=== PATIENT | male | born 1995 | race Caucasian/White ===

== ENCOUNTER 2022-07-10 06:44 | Inpatient (IN) | payer OTHER ==
[~2022-07-10] VITALS: Ht 165.1 cm; Wt 62.7 kg
[2022-07-10 08:01] LABS: HEMATOCRIT 45.3 % (42.0-52.0); HEMOGLOBIN 14.8 g/dl (13.5-17.5); MEAN CORPUSCULAR HEMOGLOBIN 29.4 pg (27.0-33.0); MEAN CORPUSCULAR HGB CONC 32.7 g/dl (32.0-36.5); MEAN CORPUSCULAR VOLUME 89.9 fl (80.0-96.0); PLATELET COUNT, AUTOMATED 314 10^3/uL (150-450); RED BLOOD COUNT 5.04 10^6/uL (4.30-6.10); WHITE BLOOD COUNT 9.7 10^3/uL (4.0-10.0)
[2022-07-10] MEDS ORDERED: NICOTINE 21MG/24HR 1 EA TRANSDERMAL TD ONE (08:25)
[2022-07-10 08:39] LABS: RSV AMPLIFICATION NEGATIVE (NEGATIVE)
[2022-07-10 08:46] LABS: ACETAMINOPHEN LEVEL < 2.0 UG/ML (10.0-30.0); ALBUMIN 4.6 GM/DL (3.2-5.2); ALT/SGPT 22 U/L (12-78); BILIRUBIN,DIRECT 0.2 MG/DL (0.0-0.2); BILIRUBIN,TOTAL 0.7 MG/DL (0.2-1.0); BLOOD UREA NITROGEN 21 MG/DL (7-18); CALCIUM LEVEL 9.4 MG/DL (8.5-10.1); CARBON DIOXIDE LEVEL 27 MEQ/L (21-32); CHLORIDE LEVEL 104 MEQ/L (98-107); CREATININE FOR GFR 0.96 MG/DL (0.70-1.30); ETHYL ALCOHOL (ETHANOL) < 0.003 % (0.000-0.010); GLOMERULAR FILTRATION RATE > 60.0 (>60); GLUCOSE, FASTING 96 MG/DL (70-100); POTASSIUM SERUM 3.6 MEQ/L (3.5-5.1); SALICYLATE LEVEL 2.4 MG/DL (5.0-30.0); SODIUM LEVEL 136 MEQ/L (136-145); TOTAL PROTEIN 7.7 GM/DL (6.4-8.2)
[2022-07-10 10:56] LABS: AMPHETAMINES LEVEL URINE NEGATIVE (NEGATIVE); BARBITURATES URINE NEGATIVE (NEGATIVE); BENZODIAZEPINES URINE NEGATIVE (NEGATIVE); CANNABINOIDS URINE NEGATIVE (NEGATIVE); COCAINE METABOLITE URINE NEGATIVE (NEGATIVE); METHADONE URINE NEGATIVE (NEGATIVE); OPIATES URINE NEGATIVE (NEGATIVE); PHENCYCLIDINE URINE NEGATIVE (NEGATIVE)
[2022-07-10] MEDS ORDERED: HYDR1SYP3 PO (11:28)
[2022-07-10] MEDS ORDERED: LEXA1TAB2 PO (11:29)
[2022-07-10] MEDS ORDERED: HYDR50TA70 PO (18:56)
[2022-07-10] MEDS ORDERED: HOME MED LIST COMPLETE! XX SCH (19:00)
[2022-07-10] MEDS: hydrOXYzine 50 MG TAB PO PRN (20:55)
[2022-07-11] MEDS ORDERED: ESCITALOPRAM OXALATE 10 MG TAB (LEXAPRO) PO SCH (09:00)
[2022-07-11] MEDS ORDERED: NICOTINE 21MG/24HR 1 EA TRANSDERMAL TD ONE (10:50)
[2022-07-11] MEDS ORDERED: IBUPROFEN 400MG TAB PO PRN (15:25)
[2022-07-11] MEDS ORDERED: MAALOX 30 ML SUSP *UDC PO PRN (15:25)
[2022-07-11] MEDS ORDERED: traZODone 50 MG TAB PO PRN (15:25)
[2022-07-11] MEDS ORDERED: MOM 30ML SUSPENSION UDC PO PRN (15:25)
[2022-07-11] MEDS: hydrOXYzine 50 MG TAB PO PRN (23:54)
[2022-07-12] MEDS ORDERED: NICOTINE POLACRILEX 2 MG GUM PO PRN (10:30)
[2022-07-12] MEDS: ESCITALOPRAM OXALATE 10 MG TAB (LEXAPRO) PO SCH (10:53)
[2022-07-12] MEDS: NICOTINE 21MG/24HR 1 EA TRANSDERMAL TD SCH (10:53)
[2022-07-12 18:06] VITALS: BP 144/72
[2022-07-12] MEDS: hydrOXYzine 50 MG TAB PO SCH (21:31)
[2022-07-13 06:56] VITALS: BP 103/51
[2022-07-13] MEDS: NICOTINE 21MG/24HR 1 EA TRANSDERMAL TD SCH (09:31)
[2022-07-13] MEDS: ESCITALOPRAM OXALATE 10 MG TAB (LEXAPRO) PO SCH (09:31)
[2022-07-13 18:32] VITALS: BP 127/69
[2022-07-13] MEDS: hydrOXYzine 50 MG TAB PO SCH (20:19)
[2022-07-14 06:28] VITALS: BP 131/83
[2022-07-14] MEDS: ESCITALOPRAM OXALATE 10 MG TAB (LEXAPRO) PO SCH (09:09)
[2022-07-14] MEDS: NICOTINE 21MG/24HR 1 EA TRANSDERMAL TD SCH (09:15)
[2022-07-14] MEDS: busPIRone 5 MG TAB PO SCH ×2 (15:12→20:49)
[2022-07-14 16:31] VITALS: BP 130/80
[2022-07-14] MEDS: hydrOXYzine 50 MG TAB PO SCH (20:50)
[2022-07-15 06:41] VITALS: BP 129/71
[2022-07-15] MEDS: busPIRone 5 MG TAB PO SCH ×3 (08:43→21:10)
[2022-07-15] MEDS: ESCITALOPRAM OXALATE 10 MG TAB (LEXAPRO) PO SCH (08:43)
[2022-07-15] MEDS: NICOTINE 21MG/24HR 1 EA TRANSDERMAL TD SCH (08:48)
[2022-07-15 16:25] VITALS: BP 111/60
[2022-07-15 16:31] VITALS: BP 111/60
[2022-07-15] MEDS: hydrOXYzine 50 MG TAB PO SCH (21:10)
[2022-07-16 06:28] VITALS: BP 108/63
[2022-07-16] MEDS ORDERED: INFLUENZA QUADRIVALENT PF VACCINE 0.5ML SYRINGE IM.IMMUN ONE (09:20)
[2022-07-16] MEDS: NICOTINE 21MG/24HR 1 EA TRANSDERMAL TD SCH (09:27)
[2022-07-16] MEDS: busPIRone 5 MG TAB PO SCH (09:27)
[2022-07-16] MEDS: ESCITALOPRAM OXALATE 10 MG TAB (LEXAPRO) PO SCH (09:27)
[2022-07-16] MEDS ORDERED: TRAZ-252 PO (09:41)
[2022-07-16] MEDS ORDERED: BUSP5TA PO (09:41)
[2022-07-16] MEDS ORDERED: NICO2GUM PO (09:41)
[2022-07-16] MEDS ORDERED: LEXA1TAB PO (09:41)
[2022-07-16] MEDS ORDERED: NICO21PAT TD (09:41)
== END 2022-07-16 10:45 | disposition home or self-care (01) | DRG 882 ==
LOC: M ED 06:44 → M ED INP 07-11 15:27 → M PSY 07-11 18:32
PROVIDERS: ADMIT Psychiatry & Neurology Psychiatry; ATTEND Student in an Organized Health Care Education/Training Program
DX: F43.23 Adjustment disorder with mixed anxiety and depressed mood (principal); F41.1 Generalized anxiety disorder; F43.10 Post-traumatic stress disorder, unspecified; F60.89 Other specific personality disorders; F17.290 Nicotine dependence, other tobacco product, uncomplicated; Z79.899 Other long term (current) drug therapy; Z91.52 Personal history of nonsuicidal self-harm; F17.210 Nicotine dependence, cigarettes, uncomplicated; S51.812A Laceration without foreign body of left forearm, initial encounter; X78.9XXA Intentional self-harm by unspecified sharp object, initial encounter; Y92.9 Unspecified place or not applicable; Y93.9 Activity, unspecified; Y99.8 Other external cause status; Z63.5 Disruption of family by separation and divorce; Z81.8 Family history of other mental and behavioral disorders; Z20.822 Contact with and (suspected) exposure to COVID-19

== ENCOUNTER 2022-08-25 19:27 | Emergency (ER) | payer OTHER ==
[~2022-08-25] VITALS: Ht 162.6 cm; Wt 65.7 kg
[~2022-08-25 19:27] MED LIST: BUSP5TA PO; HYDR1SYP3 PO; HYDR50TA70 PO; LEXA1TAB PO; LEXA1TAB2 PO; NICO21PAT TD; NICO2GUM PO; TRAZ-252 PO
[2022-08-25 19:29] VITALS: BP 136/81
[2022-08-25 20:55] LABS: HEMATOCRIT 42.8 % (42.0-52.0); HEMOGLOBIN 14.3 g/dl (13.5-17.5); MEAN CORPUSCULAR HEMOGLOBIN 29.2 pg (27.0-33.0); MEAN CORPUSCULAR HGB CONC 33.4 g/dl (32.0-36.5); MEAN CORPUSCULAR VOLUME 87.3 fl (80.0-96.0); PLATELET COUNT, AUTOMATED 331 10^3/uL (150-450); WHITE BLOOD COUNT 6.2 10^3/uL (4.0-10.0)
[2022-08-25 21:22] LABS: RSV AMPLIFICATION NEGATIVE (NEGATIVE)
[2022-08-25 21:30] LABS: ACETAMINOPHEN LEVEL < 2.0 UG/ML (10.0-30.0); ALT/SGPT 27 U/L (12-78); BILIRUBIN,DIRECT 0.1 MG/DL (0.0-0.2); BILIRUBIN,TOTAL 0.5 MG/DL (0.2-1.0); BLOOD UREA NITROGEN 11 MG/DL (7-18); CARBON DIOXIDE LEVEL 28 MEQ/L (21-32); CHLORIDE LEVEL 107 MEQ/L (98-107); CREATININE FOR GFR 0.77 MG/DL (0.70-1.30); ETHYL ALCOHOL (ETHANOL) < 0.003 % (0.000-0.010); GLOMERULAR FILTRATION RATE > 60.0 (>60); GLUCOSE, FASTING 90 MG/DL (70-100); SALICYLATE LEVEL 2.7 MG/DL (5.0-30.0); SODIUM LEVEL 140 MEQ/L (136-145); TOTAL PROTEIN 7.1 GM/DL (6.4-8.2)
== END 2022-08-25 22:17 | disposition home or self-care (01) ==
LOC: M ED 19:27
DX: F43.0 Acute stress reaction (principal); S60.812A Abrasion of left wrist, initial encounter; X78.9XXA Intentional self-harm by unspecified sharp object, initial encounter; F32.A Depression, unspecified; F43.10 Post-traumatic stress disorder, unspecified; Z91.011 Allergy to milk products; F17.200 Nicotine dependence, unspecified, uncomplicated; Z79.899 Other long term (current) drug therapy

== ENCOUNTER 2022-12-04 19:56 | Emergency (ER) | payer OTHER ==
[~2022-12-04] VITALS: Ht 160 cm; Wt 70.1 kg
[2022-12-04 19:56] VITALS: BP 133/86
== END 2022-12-04 22:47 | disposition left against medical advice (07) ==
LOC: M ED 19:56
DX: Z53.21 Procedure and treatment not carried out due to patient leaving prior to being seen by health care provider (principal)